=== PATIENT | male | born 1995 | race Caucasian/White ===

== ENCOUNTER 2019-03-16 09:14 | Inpatient (IN) | payer OTHER ==
[~2019-03-16] VITALS: Ht 170.2 cm; Wt 59.1 kg
[2019-03-16 10:14] LABS: HEMATOCRIT 47.3 % (42.0-52.0); MEAN CORPUSCULAR HEMOGLOBIN 31.1 pg (27.0-33.0); MEAN CORPUSCULAR HGB CONC 33.8 g/dl (32.0-36.5); PLATELET COUNT, AUTOMATED 248 10^3/uL (150-450); RED BLOOD COUNT 5.14 10^6/uL (4.30-6.10); WHITE BLOOD COUNT 6.7 10^3/uL (4.0-10.0)
[2019-03-16 10:43] LABS: AMPHETAMINES LEVEL URINE NEGATIVE (NEGATIVE); BARBITURATES URINE NEGATIVE (NEGATIVE); BENZODIAZEPINES URINE NEGATIVE (NEGATIVE); CANNABINOIDS URINE NEGATIVE (NEGATIVE); COCAINE METABOLITE URINE NEGATIVE (NEGATIVE); METHADONE URINE NEGATIVE (NEGATIVE); OPIATES URINE NEGATIVE (NEGATIVE); PHENCYCLIDINE URINE NEGATIVE (NEGATIVE)
[2019-03-16 10:54] LABS: ACETAMINOPHEN LEVEL < 2.0 UG/ML (10.0-30.0); ALBUMIN 4.6 GM/DL (3.2-5.2); ALT/SGPT 21 U/L (12-78); BILIRUBIN,DIRECT 0.2 MG/DL (0.0-0.2); BILIRUBIN,TOTAL 0.6 MG/DL (0.2-1.0); BLOOD UREA NITROGEN 17 MG/DL (7-18); CALCIUM LEVEL 9.4 MG/DL (8.5-10.1); CARBON DIOXIDE LEVEL 31 MEQ/L (21-32); CHLORIDE LEVEL 104 MEQ/L (98-107); CREATININE FOR GFR 1.06 MG/DL (0.70-1.30); ETHYL ALCOHOL (ETHANOL) < 0.003 % (0.000-0.010); GLOMERULAR FILTRATION RATE > 60.0 (>60); GLUCOSE, FASTING 64 MG/DL (70-100); POTASSIUM SERUM 4.3 MEQ/L (3.5-5.1); SALICYLATE LEVEL < 1.7 MG/DL (5.0-30.0); SODIUM LEVEL 140 MEQ/L (136-145); TOTAL PROTEIN 7.5 GM/DL (6.4-8.2)
[2019-03-16] MEDS ORDERED: MELA5TAB21 PO (11:45)
[2019-03-16] MEDS ORDERED: HALOPERIDOL 5 MG TAB PO PRN (13:30)
[2019-03-16] MEDS ORDERED: ACETAMINOPHEN TAB 650MG DOSE (2X325MG) PO PRN (13:30)
[2019-03-16 15:04] VITALS: BP 109/67
[2019-03-16] MEDS: NICOTINE 21MG/24HR 1 EA TRANSDERMAL TD SCH (17:54)
--- NOTE | 2019-03-16 19:59 | HPE ---
DATE OF ADMISSION: 03/16/2019 HISTORY OF THE PRESENT ILLNESS: Please refer to psychiatric history and evaluation for further details on this admission. This examination and history is intended for medical issues which may need treatment, followup, or consult on this 23-year-old male. ALLERGIES: No known allergies. PRIMARY CARE PROVIDER: [facility]. SOCIAL HISTORY: He is . He is a soldier. He was at [facility] and was having suicidal ideations. He states his wants a divorce. She is currently in [place]. Ethyl alcohol (EtOH): He states he drinks at least two beers daily. Smokes: One pack of cigarettes per day. Recreational drug use: None. PAST MEDICAL HISTORY: Negative. PAST SURGICAL HISTORY: [place] teeth extraction. HOME MEDICATIONS: - melatonin 5 mg by mouth nightly as needed for sleep FAMILY HISTORY: Mother is alive and well. Father's health is unknown. LABORATORY STUDIES: CBC is normal. Electrolytes were normal. BUN 17, creatinine 1.06, TSH was normal. Urine for toxicology was negative. REVIEW OF SYSTEMS: Eleven systems review was done and was unremarkable. PHYSICAL EXAMINATION: A 23-year-old cooperative male in no acute distress. Height 67 inches, weight 59.09 kilograms, body mass index (BMI) 20.4. Blood pressure 109/67, pulse 68, respirations 16, temperature 97.1, oxygen saturation (O2 sat) 98% on room air. The patient is alert and oriented times three. Pupils equal and reactive to light. Extraocular movements intact. Cornea and sclerae clear. Conjunctivae is normal. No facial asymmetry. Pharynx: Tongue and gums pink and moist. Tongue is midline. Neck is supple without lymphadenopathy. No thyromegaly. No goiter. Carotids 2+ without bruits. Chest is clear to auscultation without wheeze or retractions. Heart is regular. Abdomen: Benign. Bowel sounds are positive. Genital/Rectal: Not done. Extremities: No cyanosis, clubbing or edema. Peripheral pulses equal and palpable bilaterally. Skin is warm and dry. IMPRESSION AND PLAN: Psychiatric plan per psychiatry. No acute medical issues.
[2019-03-17 06:48] VITALS: BP 104/69
[2019-03-17] MEDS: NICOTINE 21MG/24HR 1 EA TRANSDERMAL TD SCH (08:25)
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
[2019-03-17 16:40] VITALS: BP 124/88
[2019-03-17] MEDS ORDERED: MOM 30ML SUSPENSION UDC PO PRN (22:45)
[2019-03-17] MEDS ORDERED: MAALOX 30 ML SUSP *UDC PO PRN (22:45)
[2019-03-17] MEDS ORDERED: traZODone 50 MG TAB PO PRN (22:45)
[2019-03-18 06:51] VITALS: BP 150/81
[2019-03-18] MEDS ORDERED: NICO21PAT TD (08:22)
--- NOTE | 2019-03-18 08:53 | MHDSPDOC ---
[facility] Discharge Summary Discharge Summary DATE OF ADMISSION: Mar 16, 2019 at 13:23 DATE OF DISCHARGE: 03/18/19 Date of Service: 03/18/2019 Diagnoses Unspecified depressive disorder. Rule out substance-induced, namely alcohol. Alcohol use disorder, unspecified. Tobacco use disorder, unspecified. History of Present Illness The patient a 23-year-old man with no past psychiatric history, presents to [facility] brought in by his [facility] after presenting to outpatient Behavioral Health at [facility] reporting some suicidal thoughts on presentation, however, he noted that a few nights prior he had received a text from his and this had been upsetting as she had requested to be from him after only several months of marriage. She lives in [place] and he currently lives here. He had no notable indications this would happen and describes he was upset and began to drink and he had endorsed suicidal thoughts of the plan to shoot himself. He reports that his friend removed any means from his home and after he had sobered up, he had gone to behavioral health where he reportedly had endorsed this and was brought to be evaluated at the ER and subsequently admitted. Consultants Involved Hospitalist/PCP screening Treatment and Progress On The Unit The patient was admitted to the unit subsequently after observation and examinat ion for 48 hours. It was clear the patient had no suicidal or homicidal ideation and was able to attend to his needs. He declined trying any medications as he categorically denied consistent symptoms with major depression. Observation on the unit indicated that he was able to socialize and did not demonstrate signs or symptoms of a major mental illness. He requested discharge and at the time of discharge did not meet involuntary criteria due to the aforementioned lack of overt threats toward self or others and the ability to attend to his needs. He declined a further voluntary admission and thus was discharged in [place] to the care of his [facility]. It appeared upon further investigation that his statements made were likely due to his intoxication with alcohol. Discharge Assessment A 23-year old man with a history that is generally free of major mental illness by his report. He does not demonstrate signs or symptoms of major mental illness and likely his statements and any symptoms demonstrated prior to his presentation were related to intoxication with alcohol. Mental Status Examination General: Well dressed with good hygiene Speech: Spontaneous and fluid Thought processes: Linear and logical MSK: Smooth and coordinated gait, no signs of tremors or involuntary orofacial movements Thought content: Future orientated Abstract reasoning, and computation: Intact Description of associations: Intact Description of abnormal or psychotic thoughts: Denies any suicidal or homicidal ideation. Denies any auditory or visual hallucinations. Does not appear to be responding to internal stimuli. Does not appear to be endorsing any bizarre or paranoid ideation. Judgment: fair Insight: fair Orientation: Alert and orientated 3 Cognition: Grossly normal Recent and remote memory: Intact Attention span and concentration: Intact Fund of knowledge: Adequate Mood: "okay" Affect: Euthymic with a full range Follow Up The social work team worked during the predischarge meeting in order to evaluate for further issues of lethality address them fully before discharge. They worked on safety planning with the patient's family members in order to ensure that the patient will have a safe and effective discharge. Time Spent The amount of time spent in the coordination of care for this patient was approximately 20 minutes. Saturday Vital Signs/I&Os Vital Signs Date Time Temp Pulse Resp B/P (MAP) Pulse Ox O2 Delivery O2 Flow Rate FiO2 03/18/19 06:51 98.4 102 12 150/81 (104) 03/16/19 15:04 98 03/16/19 14:50 Room Air Medications Scheduled Nicotine (Nicotine Patch) 21 Mg Patch.td24, 1 PATCH TD DAILY for smoking for 30 Days, #30 Scheduled PRN Melatonin (Melatonin) 5 Mg Tab.ir.er, 5 MG PO QHS PRN for SLEEP, (Reported) Allergies Coded Allergies: No Known Allergies (Unverified , 03/16/19) ELSI ADAMS DO Mar 18, 2019 08:53
[2019-03-18] MEDS: NICOTINE 21MG/24HR 1 EA TRANSDERMAL TD SCH (08:54)
== END 2019-03-18 09:15 | disposition home or self-care (01) | DRG 881 ==
LOC: M ED 09:14 → M ED INP 13:23 → M PSY 16:17
PROVIDERS: ADMIT Psychiatry & Neurology Addiction Medicine; ATTEND Psychiatry & Neurology Addiction Medicine
DX: F32.9 Major depressive disorder, single episode, unspecified (principal); F10.94 Alcohol use, unspecified with alcohol-induced mood disorder; R45.851 Suicidal ideations; F17.210 Nicotine dependence, cigarettes, uncomplicated

== ENCOUNTER 2019-10-06 16:26 | Emergency (ER) | payer OTHER ==
[~2019-10-06] VITALS: Ht 170.2 cm; Wt 62.8 kg
[~2019-10-06 16:26] MED LIST: MELA5TAB21 PO; NICO21PAT TD
[2019-10-06] MEDS ORDERED: antidepressant (16:31)
[2019-10-06] MEDS ORDERED: IBUPROFEN 600 MG TAB PO ONE (17:30)
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
[2019-10-06 18:34] VITALS: BP 123/81
== END 2019-10-06 18:39 | disposition home or self-care (01) ==
LOC: M ED 16:26
DX: S06.0X0A Concussion without loss of consciousness, initial encounter (principal); W22.8XXA Striking against or struck by other objects, initial encounter; Y92.139 Unspecified place military base as the place of occurrence of the external cause; Y93.9 Activity, unspecified; Y99.1 Military activity; R42 Dizziness and giddiness; R41.3 Other amnesia; H93.19 Tinnitus, unspecified ear; G47.00 Insomnia, unspecified; M54.9 Dorsalgia, unspecified; F17.200 Nicotine dependence, unspecified, uncomplicated

== ENCOUNTER 2019-10-14 11:26 | Emergency (ER) | payer OTHER ==
[~2019-10-14] VITALS: Ht 170.2 cm; Wt 63.5 kg
[~2019-10-14 11:26] MED LIST changes: +antidepressant
[2019-10-14] MEDS ORDERED: ONDANSETRON 4 MG ORAL DISINTEGRATING TAB (Q0162 PER 1MG) PO ONE (12:15)
[2019-10-14] MEDS ORDERED: ACETAMINOPHEN 500 MG TAB PO ONE (12:15)
[2019-10-14] MEDS ORDERED: SUMAtriptan SUCCINATE 25 MG TAB PO ONE (13:15)
[2019-10-14 14:34] VITALS: BP 119/66
== END 2019-10-14 14:35 | disposition home or self-care (01) ==
LOC: M ED 11:26
DX: S06.0X0D Concussion without loss of consciousness, subsequent encounter (principal); X58.XXXD Exposure to other specified factors, subsequent encounter; Y92.9 Unspecified place or not applicable; Y93.9 Activity, unspecified; Y99.9 Unspecified external cause status; F17.200 Nicotine dependence, unspecified, uncomplicated
CPT/HCPCS: 99283; Q0162

== ENCOUNTER 2020-03-29 14:16 | Emergency (ER) | payer OTHER ==
[~2020-03-29] VITALS: Ht 170.2 cm; Wt 60.9 kg
[2020-03-29] MEDS ORDERED: NORCO, ANEXSIA 5/325MG TABLET (HYDROcodone/ACETAMINOPHEN) PO ONE (16:00)
[2020-03-29] MEDS ORDERED: AUGMENTIN 875 MG TAB PO ONE (16:00)
[2020-03-29] MEDS ORDERED: IBUP-1022 PO (16:27)
[2020-03-29] MEDS ORDERED: AUGM875T28 PO (16:27)
[2020-03-29 16:31] VITALS: BP 130/72
--- NOTE | 2020-03-29 16:31 | REPVR ---
PROCEDURE INFORMATION: Exam: XR Right Tibia and Fibula Exam date and time: 03/29/2020 4:14 PM Age: 24 years old Clinical indication: Injury or trauma; Injury history: Dog bite; Late effect from previous injury; Lower leg; Bilateral; Additional info: Dog bite bilateral calves R/O fb TECHNIQUE: Imaging protocol: XR Right tibia and fibula. Views: 2 views. COMPARISON: No relevant prior studies available. FINDINGS: Bones/joints: Normal. Soft tissues: Normal. IMPRESSION: No acute findings. PROCEDURE INFORMATION: Exam: XR Left Tibia and Fibula Exam date and time: 03/29/2020 4:14 PM Age: 24 years old Clinical indication: Injury or trauma; Injury history: Dog bite; Late effect from previous injury; Lower leg; Bilateral; Additional info: Dog bite bilateral calves R/O fb TECHNIQUE: Imaging protocol: XR Left tibia and fibula. Views: 2 views. COMPARISON: No relevant prior studies available. FINDINGS: Bones/joints: Normal. Soft tissues: Normal. IMPRESSION: No acute findings. Electronically signed by: Danish Schulte On 03/29/2020 16:30:45 PM
== END 2020-03-29 16:55 | disposition home or self-care (01) ==
LOC: M ED 14:16
DX: S81.851A Open bite, right lower leg, initial encounter (principal); S81.852A Open bite, left lower leg, initial encounter; W54.0XXA Bitten by dog, initial encounter; Y92.410 Unspecified street and highway as the place of occurrence of the external cause; Y93.89 Activity, other specified; Y99.8 Other external cause status; F17.200 Nicotine dependence, unspecified, uncomplicated

== ENCOUNTER 2020-04-10 16:49 | Emergency (ER) | payer OTHER ==
[~2020-04-10] VITALS: Ht 170.2 cm; Wt 60.2 kg
[2020-04-10 16:49] VITALS: BP 127/74
[~2020-04-10 16:49] MED LIST changes: +AUGM875T28 PO; +IBUP-1022 PO
[2020-04-10] MEDS ORDERED: IMIT5SPR (16:52)
[2020-04-10] MEDS ORDERED: RABIES VACCINE HUMAN 2.5 INTERNATIONAL UNITS/ML VIAL (90675) IM ONE (17:00)
== END 2020-04-10 17:16 | disposition home or self-care (01) ==
LOC: M ED 16:49
DX: Z23 Encounter for immunization (principal); Z20.3 Contact with and (suspected) exposure to rabies